=== PATIENT | female | born 1995 | race Caucasian/White ===

== ENCOUNTER 2018-03-13 12:41 | Emergency (ER) | payer OTHER ==
[2018-03-13 13:04] LABS: PLATELET COUNT 211 10^3/uL (150-400)
--- NOTE | 2018-03-13 13:08 | EDPHY ---
H & P Stated Complaint: AMS started around 9am today, right arm and leg numbness Time Seen by Provider: 03/13/18 12:52 HPI/ROS: CHIEF COMPLAINT: Right-sided weakness, expressive aphasia HISTORY OF PRESENT ILLNESS: 22-year-old previously healthy female presents with right-sided weakness and expressive aphasia. At 9:00 a.m., she was standing at work and noted right lower extremity numbness, followed by right sided weakness, involving her leg and arm. The numbness and weakness have now resolved. However she developed expressive aphasia approximately 1 hr ago. She has difficulty with word-finding. She also has a very slight headache currently. No history of migraine headaches. 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 [employer] - Physical Exam Exam: General Appearance: Alert, pleasant, occasional difficulty with word-finding Eyes: Pupils equal and round, no conjunctival pallor or injection ENT, Mouth: Mucous membranes moist Neck: Normal inspection Respiratory: Lungs are clear to auscultation Cardiovascular: Regular rate and rhythm Gastrointestinal: Abdomen is soft and nontender Neurological: Alert, oriented x3, cranial nerves II through XII intact, motor 5 /5, sensory intact to light touch Skin: Warm and dry Extremities: Nontender, no pedal edema Psychiatric: Mood and affect normal Constitutional: Initial Vital Signs Temperature (C) 37.1 C 03/13/18 12:48 Heart Rate 78 03/13/18 12:48 Respiratory Rate 18 03/13/18 12:48 Blood Pressure 140/96 H 03/13/18 12:48 O2 Sat (%) 100 03/13/18 12:48 O2 Delivery Mode Room Air Allergies/Adverse Reactions: No Known Allergies Allergy (Unverified 03/13/18 12:45) Home Medications: Medication Instructions Recorded Controll Pills 03/13/18 Medical Decision Making - Diagnostics Imaging Results: Imaging Impressions Head CT 03/13/18 12:58 Impression: 1. Normal CT brain without contrast. 2. Consider MRI of the brain, if there is continued clinical concern. Findings and recommendations discussed with Emergency Department physician, MATTIE APPLE at 13:15 hour, 03/13/2018. Final report concurs with initial preliminary interpretation. Head CTA 03/13/18 13:08 Impression: Normal CT angiogram of the head and neck. If symptoms persist and clinical suspicion warrants, consider MRI brain. Stenoses are calculated using [place] Symptomatic Carotid Endarterectomy Trial (NASCET) criteria. Findings discussed with MATTIE APPLE 03/13/2018 at 14:14. Neck CTA 03/13/18 13:08 Impression: Normal CT angiogram of the head and neck. If symptoms persist and clinical suspicion warrants, consider MRI brain. Stenoses are calculated using [place] Symptomatic Carotid Endarterectomy Trial (NASCET) criteria. Findings discussed with MATTIE APPLE 03/13/2018 at 14:14. Brain MRI 03/13/18 14:14 Impression: Normal MRI of the brain without and with contrast. Results called and discussed with MATTIE APPLE at 03/13/2018 15:40. Imaging: Discussed imaging studies w/ call center director Radiologist, I viewed and interpreted images myself ED Course/Re-evaluation: A stroke alert was called on patient arrival. NIH stroke scale is 1. Noncontrast CT scan of the brain is unremarkable, read by Dr. Marino this 1 knee. [facility] evaluated the patient and Dr. Dill feels that she is not a tPA candidate. I agree with this assessment. More likely this is a atypical migraine. CTA of the head and neck obtained and is unremarkable. MRI with and without IV contrast obtained to evaluate for possible demyelinating disease. 1415: Expressive aphasia has resolved. Patient feels back to normal except for a mild generalized headache. Declines pain medication neurologic exam is normal. CT scan results discussed with the patient. Understands the indication for MRI and wishes to proceed. 15 40: MRI brain normal, read by Dr. Jean-Claude Sibley. Results discussed with the patient. Continues to feel back to her normal baseline status. Neurologic exam remains normal. c/w atypical migraine headache. Will follow up with Neurology as an outpatient. Warning signs discussed. Differential Diagnosis: Altered mental status including but not limited to hypoglycemia, infectious process, electrolyte abnormality, head injury, CVA, and intoxicants. - Data Points Laboratory Results: Laboratory Results 03/13/18 12:55 03/13/18 12:55 03/13/18 03/13/18 03/13/18 13:08 13:07 12:55 WBC RBC Hgb POC Hgb 13.9 gm/dL gm/dL (12.6-16.3) Hct POC Hct 41 % % (38-47) MCV MCH MCHC RDW Plt Count MPV Neut % (Auto) Lymph % (Auto) Bulloch % (Auto) Eos % (Auto) Baso % (Auto) Nucleat RBC Rel Count Absolute Neuts (auto) Absolute Lymphs (auto) Absolute Monos (auto) Absolute Eos (auto) Absolute Basos (auto) Absolute Nucleated RBC Immature Gran % Immature Gran # POC Sodium 141 mEq/L mEq/L (135-145) Sodium 139 mEq/L mEq/L (135-145) POC Potassium 3.6 mEq/L mEq/L (3.3-5.0) Potassium 4.1 mEq/L mEq/L (3.5-5.2) POC Chloride 103 mEq/L mEq/L (97-110) Chloride 106 mEq/L mEq/L (97-110) Carbon Dioxide 23 mEq/l mEq/l (22-31) Anion Gap 10 mEq/L mEq/L (6-14) POC BUN 11 mg/dL mg/dL (7-23) BUN 13 mg/dL mg/dL (7-23) Creatinine 0.7 mg/dL mg/dL (0.6-1.0) POC Creatinine 0.7 mg/dL mg/dL (0.6-1.0) Estimated GFR > 60 Glucose 90 mg/dL mg/dL (70-100) POC Glucose 93 mg/dL mg/dL (70-100) Calcium 9.1 mg/dL mg/dL (8.5-10.4) POC Troponin I 0.00 ng/mL ng/mL (0.00-0.08) 03/13/18 12:55 WBC 9.39 10^3/uL 10^3/uL (3.80-9.50) RBC 4.54 10^6/uL 10^6/uL (4.18-5.33) Hgb 13.1 g/dL g/dL (12.6-16.3) POC Hgb Hct 39.4 % % (38.0-47.0) POC Hct MCV 86.8 fL fL (81.5-99.8) MCH 28.9 pg pg (27.9-34.1) MCHC 33.2 g/dL g/dL (32.4-36.7) RDW 16.1 % H % (11.5-15.2) Plt Count 211 10^3/uL 10^3/uL (150-400) MPV 10.4 fL fL (8.7-11.7) Neut % (Auto) 63.4 % % (39.3-74.2) Lymph % (Auto) 27.6 % % (15.0-45.0) Bulloch % (Auto) 5.9 % % (4.5-13.0) Eos % (Auto) 2.7 % % (0.6-7.6) Baso % (Auto) 0.2 % L % (0.3-1.7) Nucleat RBC Rel Count 0.0 % % (0.0-0.2) Absolute Neuts (auto) 5.96 10^3/uL 10^3/uL (1.70-6.50) Absolute Lymphs (auto) 2.59 10^3/uL 10^3/uL (1.00-3.00) Absolute Monos (auto) 0.55 10^3/uL 10^3/uL (0.30-0.80) Absolute Eos (auto) 0.25 10^3/uL 10^3/uL (0.03-0.40) Absolute Basos (auto) 0.02 10^3/uL 10^3/uL (0.02-0.10) Absolute Nucleated RBC 0.00 10^3/uL 10^3/uL (0-0.01) Immature Gran % 0.2 % % (0.0-1.1) Immature Gran # 0.02 10^3/uL 10^3/uL (0.00-0.10) POC Sodium Sodium POC Potassium Potassium POC Chloride Chloride Carbon Dioxide Anion Gap POC BUN BUN Creatinine POC Creatinine Estimated GFR Glucose POC Glucose Calcium POC Troponin I Point of Care Test Results: Chemistry 03/13/18 03/13/18 13:08 13:07 POC Sodium 141 mEq/L mEq/L (135-145) POC Potassium 3.6 mEq/L mEq/L (3.3-5.0) POC Chloride 103 mEq/L mEq/L (97-110) POC BUN 11 mg/dL mg/dL (7-23) POC Creatinine 0.7 mg/dL mg/dL (0.6-1.0) POC Glucose 93 mg/dL mg/dL (70-100) POC Troponin I 0.00 ng/mL ng/mL (0.00-0.08) ISTAT H&H 03/13/18 13:07 POC Hgb 13.9 gm/dL gm/dL (12.6-16.3) POC Hct 41 % % (38-47) Departure - Departure Disposition: Home, Routine, Self-Care Clinical Impression: Atypical migraine Condition: Good Instructions: Migraine Headache (ED) Additional Instructions: Return for recurrent symptoms or any concerns. Referrals: Matt Coello MD [Medical Doctor] - As per Instructions
[2018-03-13] MEDS ORDERED: IOPAMIDOL (ISOVUE 370) 100 ML BTL IV ONE (13:18)
[2018-03-13] MEDS ORDERED: GADOBUTROL 10 ML VIAL IVP ONE (14:56)
[2018-03-13 15:55] VITALS: BP 105/65
--- NOTE | 2018-03-13 16:20 | PDCONSULT ---
Senior Controls Analyst Note: [place] [facility] Note Demographics Consult Type: Acute Stroke First Name: Radha Last Name: Kwabena Date of : 1995 Age: 22 Gender: Female Referring Provider: Dr. Dumont Time of initial page ([place] ): 03/13/2018 13:20 Time of return call ([place] ): 03/13/2018 13:20 Time Ready to Initiate Telemed Consult (): 03/13/2018 13:20 HPI Additional History (Free Text): Around 9am started feeling "fuzzy". Then developed right sided numbness. Some intermittent word finding difficulties. Slight headache. Similar episode when patient was in 5th grade. Patient was told it was a migraine. Symptoms resolved shortly after arrival to ED. [facility]-- Medications: control Exam SBP: 120 DBP: 81 Mental Status: awake, alert + oriented x 3, follows commands Language: normal speech, no aphasia, no dysarthria Cranial Nerves: normal, extra ocular movements intact, normal visual nassar, no facial droop, normal facial sensation, no dysarthria Motor: normal strength, no drift Sensory: normal sensation Cerebellar: normal cerebellar NIHSS Time (): 03/13/2018 13:25 LOC 1a: 0 = Alert; keenly responsive LOC 1b: 0 = Answers both questions correctly LOC Commands: 0 = Performs both tasks correctly Best Gaze: 0 = Normal Visual: 0 = No visual loss Facial Palsy: 0 = Normal symmetrical movements Motor Arm L: 0 = No drift; limb holds 90 (or 45) degrees for full 10 seconds Motor Arm R: 0 = No drift; limb holds 90 (or 45) degrees for full 10 seconds Motor Leg L: 0 = No drift; leg holds 30-degree position for full 5 seconds Motor Leg R: 0 = No drift; leg holds 30-degree position for full 5 seconds Limb Ataxia: 0 = Absent Sensory: 0 = Normal; no sensory loss Best Language: 0 = No aphasia; normal Dysarthria: 0 = Normal Extinction + Inattention: 0 = No abnormality NIHSS: [address]: no bleed Assessment . Complex Migraine Plan Lytic/Intervention: NOT IV or IA candidate tPA Exclusion (< 3hr window): Mild or improving symptoms Imaging: MRI brain with and without Other: I have discussed my recommendations with the referring provider Additional Recommendations: If MRI brain unremarkable and patient improved, likely okay to d/c home. Disposition: observation Logistics Telemedicine: Interactive 2 way audio and visual telecommunication technology was utilized during this visit. Provider Location: [place]
--- NOTE | 2018-03-13 20:57 | CPEKG ---
Test Reason : OPEN Blood Pressure : / mmHG Vent. Rate : 065 BPM Atrial Rate : 069 BPM P-R Int : 196 ms QRS Dur : 092 ms QT Int : 411 ms P-R-T Axes : -12 009 001 degrees QTc Int : 428 ms Sinus arrhythmia Borderline T abnormalities, anterior leads Confirmed by Angy Dumont ([id number]) on 03/13/2018 8:56:36 PM Referred By: Confirmed By:Angy Dumont
== END 2018-03-13 15:55 | disposition home or self-care (01) ==
DX: G43.909 Migraine, unspecified, not intractable, without status migrainosus (principal)
CPT/HCPCS: 82435-PO; 82565-PO; 82947-PO; 84132-PO; 84295-PO; 84484-PO; 84520-PO; 85014-PO; A9585; Q9967